=== PATIENT | female | born 1995 | race Caucasian/White ===

== ENCOUNTER 2024-08-09 18:40 | Emergency (ER) | payer OTHER ==
[2024-08-09 19:17] VITALS: RESP 18; TEMP 98.6
--- NOTE | 2024-08-09 19:26 | ED ---
Upper Extremity HPI - General Chief Complaint: Extremity Injury, Upper Stated Complaint: right hand and arm pain Time Seen by Provider: 08/09/24 18:52 Source: patient, RN notes reviewed Mode of arrival: ambulatory Limitations: no limitations - History of Present Illness Initial Comments: This is a 29-year-old female with no reported medical conditions to the emergency department with right upper extremity pain. Patient states that she was inside at work walking when her left boot got caught on a metal pallet. She states that she fell onto her right wrist with her wrist outstretched. She denies hitting her head or loss conscious at the time of the fall. Is complaining of pain of her right wrist that radiates up into her elbow. She denies shoulder pain. She denies paresthesias. No other injuries at the time of the event. No other acute complaints this time. - Related Data Allergies Allergy/AdvReac Type Severity Reaction Status Date / Time No Known Allergies Allergy Verified 08/09/24 19:17 Review of Systems ROS Statement: Those systems with pertinent positive or pertinent negative responses have been documented in the HPI. ROS Other: All systems not noted in ROS Statement are negative. Past Medical History Past Medical History: No Reported History History of Any Multi-Drug Resistant Organisms: None Reported Past Surgical History: No Surgical Hx Reported Past Psychological History: No Psychological Hx Reported Smoking Status: Never smoker Past Alcohol Use History: None Reported Past Drug Use History: None Reported General Exam Limitations: no limitations General appearance: alert, in no apparent distress ENT exam: Present: normal exam, mucous membranes moist Neck exam: Present: normal inspection. Absent: tenderness, meningismus, lymphadenopathy Respiratory exam: Present: normal lung sounds bilaterally. Absent: respiratory distress, wheezes, rales, rhonchi, stridor Cardiovascular Exam: Present: regular rate, normal rhythm, normal heart sounds. Absent: systolic murmur, diastolic murmur, rubs, gallop, clicks GI/Abdominal exam: Present: soft, normal bowel sounds. Absent: distended, tenderness, guarding, rebound, rigid Right Forearm Wrist exam: Present: full ROM, tenderness. Absent: swelling, deformity Hand Wrist exam: Present: full ROM, tenderness. Absent: swelling, deformity Neuro motor exam: Present: wrist extension intact, thumb opposition intact Vascular: Present: normal capillary refill, radial pulse (2+). Absent: vascular compromise Back exam: Present: normal inspection Neurological exam: Present: alert, oriented X3, CN II-XII intact Course Vital Signs 08/09/24 08/09/24 19:15 19:54 Temperature 98.6 F Pulse Rate 69 79 Respiratory 18 18 Rate Blood Pressure 162/92 154/89 O2 Sat by Pulse 98 98 Oximetry Medical Decision Making - Medical Decision Making Was pt. sent in by a medical professional or institution (, PA, PSYCHOLOGISTS, urgent care, hospital, or [facility]...) When possible be specific @ -No Did you speak to anyone other than the patient for history (EMS, parent, family, police, friend...)? What history was obtained from this source @ -No Did you review nursing and triage notes (agree or disagree)? Why? @ -I reviewed and agree with nursing and triage notes Were old charts reviewed (outside hosp., previous admission, EMS record, old EKG, old radiological studies, urgent care reports/EKG's, [facility] records)? Report findings @ -No old charts were reviewed Differential Diagnosis (chest pain, altered mental status, abdominal pain women, abdominal pain men, vaginal bleeding, weakness, fever, dyspnea, syncope, headache, dizziness, GI bleed, back pain, seizure, CVA, palpatations, mental health, musculoskeletal)? @ -Differential Musculoskeletal Muscular strain, contusion, ligament sprain, fracture, arthritis, septic arthritis, bursitis, cellulitis, muscle spasm, nerve compression, DVT, arterial occlusion, herpes zoster, electrolyte abnormality, tumor.... This is not meant to be in all inclusive list EKG interpreted by me (3pts min.). @ -None X-rays interpreted by me (1pt min.). @ -X-ray of the right forearm and hand no acute osseous pathology CT interpreted by me (1pt min.). @ -None done U/S interpreted by me (1pt. min.). @ -None done What testing was considered but not performed or refused? (CT, X-rays, U/S, labs)? Why? @ -None What meds were considered but not given or refused? Why? @ -None Did you discuss the management of the patient with other professionals (professionals i.e. , GAIL, PSYCHOLOGISTS, lab, RT, psych nurse, social media specialist, automatic wheel line operator, teacher, military source operations officer, rn case manager)? Give summary @ -No Was smoking cessation discussed for >3mins.? @ -No Was critical care preformed (if so, how long)? @ -No Were there social determinants of health that impacted care today? How? (Homelessness, low income, unemployed, alcoholism, drug addiction, transportation, low edu. Level, literacy, decrease access to med. care, alf, rehab)? @ -No Was there de-escalation of care discussed even if they declined (Discuss DNR or withdrawal of care, Hospice)? DNR status @ -No What co-morbidities impacted this encounter? (DM, HTN, Smoking, COPD, CAD, Cancer, CVA, ARF, Chemo, Hep., AIDS, mental health diagnosis, sleep apnea, morbid obesity)? @ -None Was patient admitted / discharged? Hospital course, mention meds given and route, prescriptions, significant lab abnormalities, going to OR and other pertinent info. @ -Discharge. 29-year-old female presents emergency room for complaints of right wrist and forearm pain. There are no obvious deformities on examination. Patient is neurovascularly intact. She was offered pain medication and was declined. X-ray imaging of the forearm and hand no acute osseous abnormality. Patient is placed in a Lai wrap and instructed to continue to rest, ice, elevate use Tylenol Motrin as needed for pain relief. Case discussed with Dr. Andrews Undiagnosed new problem with uncertain prognosis? @ -No Drug Therapy requiring intensive monitoring for toxicity (Heparin, Nitro, Insulin, Cardizem)? @ -No Were any procedures done? @ -No Diagnosis/symptom? @ -wrist sprain Acute, or Chronic, or Acute on Chronic? @ -acute Uncomplicated (without systemic symptoms) or Complicated (systemic symptoms)? @ -uncomplicated Side effects of treatment? @ -No Exacerbation, Progression, or Severe Exacerbation? @ -No Poses a threat to life or bodily function? How? (Chest pain, [place], CA, pneumonia, PE, COPD, DKA, ARF, appy, cholecystitis, CVA, Diverticulitis, Homicidal, Suicidal, threat to staff... and all critical care pts) @ -No Disposition Clinical Impression: Wrist sprain Disposition: HOME SELF-CARE Condition: Good Instructions (If sedation given, give patient instructions): Wrist Injury (ED) Additional Instructions: Please return to the Emergency Department if symptoms worsen or any other co ncerns. Is patient prescribed a controlled substance at d/c from ED?: No Referrals: None,Stated [REFERRING] - 1-2 days Time of Disposition: 19:41
--- NOTE | 2024-08-09 19:39 | XR ---
EXAMINATION TYPE: XR hand complete RT DATE OF EXAM: 08/09/2024 7:33 PM COMPARISON: None. CLINICAL INDICATION: Female, 29 years old with history of fall, pain; PHH, pain TECHNIQUE: XR hand complete RT Frontal, lateral and oblique views were obtained. FINDINGS: Normal alignment of the visualized joints. No acute osseous pathology is identified. No e vidence of soft tissue swelling. No significant degeneration IMPRESSION: No acute osseous pathology. [facility], , 08/09/2024 7:36 PM
--- NOTE | 2024-08-09 19:41 | XR ---
EXAMINATION TYPE: XR forearm RT DATE OF EXAM: 08/09/2024 7:33 PM COMPARISON: None available. CLINICAL INDICATION: Female, 29 years old with history of fall, pain; PHH, pain TECHNIQUE: XR forearm RT; forearm was examined in AP and lateral projections. FINDINGS: No acute osseous pathology, soft tissue swelling or joint dislocations are seen. IMPRESSION: No evidence of acute fracture. [facility], , 08/09/2024 7:38 PM
[2024-08-09 19:55] VITALS: BP 154/89; PULSE 79
== END 2024-08-09 20:13 | disposition home or self-care (01) ==
LOC: EC 18:40
DX: S63.501A Unspecified sprain of right wrist, initial encounter (principal); W18.30XA Fall on same level, unspecified, initial encounter
CPT/HCPCS: 99283